=== PATIENT | male | born 1950 | race Caucasian/White ===

== ENCOUNTER 2017-03-05 14:05 | Emergency (ER) | payer MEDICARE, BC ==
[2017-03-05 14:21] VITALS: BP 166/82
--- NOTE | 2017-03-05 14:47 | UC ---
Throat Pain/Nasal Gualberto HPI - HPI Summary HPI Summary: complaint of sore throat and cough that started last night today he feels like his cough has worsened starting to feel like he is wheezing today has used his albuterol 2x day for the last 2 days denies fever and chills - History of Current Complaint Chief Complaint: UCRespiratory Stated Complaint: THROAT PAIN Time Seen by Provider: 03/05/17 14:40 Hx Obtained From: Patient - Allergies/Home Medications Allergies/Adverse Reactions: Allergies Allergy/AdvReac Type Severity Reaction Status Date / Time Penicillins Allergy Severe Hives Verified 03/05/17 14:24 ENVIRONMENTAL/SEASONAL Allergy SNEEZE,CONGESTION,RUNNY Uncoded 03/05/17 14:24 HAYFEVER NOSE Home Medications: Home Medications Ezetimibe TAB* [Zetia TAB*] 10 mg PO DAILY 03/05/17 [History Confirmed 03/05/17] Rosuvastatin Calcium [Crestor] 20 mg PO 03/05/17 [History] PMH/Surg Hx/FS Hx/Imm Hx Previously Healthy: Yes Endocrine History Of: Denies: Diabetes, Thyroid Disease Cardiovascular History Of: Reports: Cardiac Disorders - mi with stent, Hypertension Respiratory History Of: Reports: Asthma - USE INHALER Denies: COPD GI/ History Of: Denies: Ulcer - Surgical History Surgical History: Yes Surgery Procedure, Year, and Place: UMBILICAL AND RIGHT INGUINAL HERNIA SURGERY,. 08/2013 1 CARDIAC STENT INSERTION, [facility] - Family History Known Family History: Negative: Cardiac Disease, Hypertension, Diabetes - Social History Occupation: Retired Lives: With Family Alcohol Use: None Substance Use Type: None Smoking Status (MU): Never Smoked Tobacco Amount Used/How Often: 1/2 PPD Length of Time of Smoking/Using Tobacco: 2 YEARS When Did the Patient Quit Smoking/Using Tobacco: 10-15 YEARS AGO - Immunization History Most Recent Influenza Vaccination: scheduled to recieve it from home MD next week Most Recent Tetanus Shot: scheduled to recieve it from home next week Most Recent Pneumonia Vaccination: scheduled to recieve it from home MD next week Review of Systems Constitutional: Negative Skin: Negative Eyes: Negative ENT: Sore Throat Respiratory: Cough Cardiovascular: Negative Gastrointestinal: Negative Genitourinary: Negative Motor: Negative Neurovascular: Negative Musculoskeletal: Negative Neurological: Headache All Other Systems Reviewed And Are Negative: Yes Physical Exam Triage Information Reviewed: Yes Appearance: No Pain Distress, Well-Nourished Vital Signs: Initial Vital Signs Temp 97.7 F 03/05/17 14:15 Pulse 81 03/05/17 14:15 Resp 18 03/05/17 14:15 BP 166/82 03/05/17 14:15 Pulse Ox 95 03/05/17 14:15 Vital Signs Reviewed: Yes Eyes: Positive: Conjunctiva Clear ENT: Positive: Pharyngeal erythema, Nasal congestion, Nasal drainage, TMs normal , Tonsillar swelling Dental: Positive: Cervical Lymphadenopathy Neck: Positive: No Lymphadenopathy Respiratory: Positive: Normal breath sounds, No respiratory distress, Wheezing - in the bases Cardiovascular: Positive: RRR, Pulses Normal Abdomen Description: Positive: Nontender, Soft Bowel Sounds: Positive: Present Musculoskeletal: Positive: No Edema Neurological Exam: Normal Psychological Exam: Normal Skin Exam: Normal Throat Pain/Nasal Course/Dx - Course Course Of Treatment: exam completed. will treat for asthma exacerabation d/t possible strep infection and worsening of wheezing - Differential Dx/Diagnosis Differential Diagnosis/HQI/PQRI: Pharyngitis, URI, Other - asthma exacerbation Provider Diagnoses: asthma exacerbation, elevated blood pressure Discharge - Discharge Plan Condition: Stable Disposition: HOME Prescriptions: Azithromyxin CAROLINE (NF) [Z-Caroline (Zithromax) 250 mg tabs #6] 2 tab PO .TODAY, THEN 1 DAILY #6 tab predniSONE TAB* [Deltasone TAB*] 50 mg PO DAILY #5 tab Patient Education Materials: Asthma (ED) Referrals: Love Gaitan MD [Primary Care Provider] - Additional Instructions: Please take antibiotic and prednisone as directed Use your albuterol inhaler every 4-6 hours when needed for wheezing, shortness of breath or uncontrolled coughing. Increase fluids and rest Take acetaminophen or ibuprofen for fever or pain Please review your discharge instructions. If your symptoms do not improve please call your primary care provider or return to urgent care.Your blood pressure is elevated. Please contact your primary care provider within 1 day -4 weeks for further evaluation
== END 2017-03-05 15:08 | disposition home or self-care (01) ==
LOC: UCEAST 14:05
DX: J45.901 Unspecified asthma with (acute) exacerbation (principal); I25.2 Old myocardial infarction; I10 Essential (primary) hypertension; Z95.5 Presence of coronary angioplasty implant and graft; Z88.0 Allergy status to penicillin; Z87.891 Personal history of nicotine dependence
CPT/HCPCS: 99212; G0463

== ENCOUNTER 2017-10-06 08:39 | Day surgery (SDC) | payer MEDICARE, BC ==
[~2017-10-06 08:39] MED LIST: Acetaminophen TAB* 325 MG PO PRN; Buffered Lidocaine 0.9% SYRIN* 5 ML/SYR SYRINGE INTRADERM ONE
[2017-10-06] MEDS ORDERED: Midazolam* 1 MG/ML 2 ML VIAL (2 MG) ONE (10:42)
[2017-10-06 11:51] VITALS: BP 110/60
[2017-10-06] MEDS ORDERED: Lidocaine 1% MPF* 2 ML VIAL ONE (12:50)
[2017-10-06] MEDS ORDERED: acetaZOLAMIDE TAB* 250 MG ONE (12:50)
[2017-10-06] MEDS ORDERED: Cyclopentolate 1% OPTH.SOL* 2 ML BTL ONE (12:50)
[2017-10-06] MEDS ORDERED: Ketorolac 0.5% OPHTH (NF) 0.5 % 5 ML BTL ONE (12:51)
[2017-10-06] MEDS ORDERED: Phenylephrine 2.5% OPTH.SOL* 2 ML BTL ONE (12:51)
[2017-10-06] MEDS ORDERED: Povidone Iodine 5% OPTH* 30 ML BTL ONE (12:51)
[2017-10-06] MEDS ORDERED: Proparacaine 0.5% OPHTH.SOL* 15 ML BTL ONE (12:51)
[2017-10-06] MEDS ORDERED: Lidocaine 2% EPI 1:200000 MPF* 20 ML VIAL ONE (12:51)
[2017-10-06] MEDS ORDERED: Neomycin/Polymy/Dex OPTH.SUSP* MAXITROL 0.1% 5 ML ONE (12:51)
--- NOTE | 2017-10-06 13:26 | OP ---
DATE OF OPERATION: 10/06/2017 - [facility] DATE OF : 1950. SURGEON: Nolan Sainz M.D. PREOPERATIVE DIAGNOSIS: Cataract left eye. POSTOPERATIVE DIAGNOSIS: Cataract left eye. OPERATIVE PROCEDURE: Extracapsular cataract extraction with intraocular lens implant left eye. DESCRIPTION OF PROCEDURE: The patient was brought to the operating room after being given 1/2% Alcaine with epinephrine drops in the preoperative area. The eye was prepped and draped in the usual sterile fashion. Sterile drape and eyelid speculum were placed. Again, topical 1/2% Alcaine with epinephrine was given. A paracentesis incision was made at the 3 o'clock position with the No.75 blade. Clear cornea incision 2.2 x 2.2-mm was created at the 6 o'clock position starting at the anterior limbus using the 2.2-mm keratome. The anterior chamber was irrigated with 0.4 mL of 1% non-preservative intracameral lidocaine and filled with DisCoVisc. A capsulorrhexis was completed using the cystotome and the Utrata forceps. Hydrodissection was performed with balanced salt solution. The lens nucleus was removed with the Phacoemulsification handpiece without incident. Cortex was removed with the irrigation-aspiration handpiece. The capsular bag was re-inflated using DisCoVisc and an [id number] 20.5 implant was inserted with the shooter. The irrigation-aspiration handpiece was used to remove all residual DisCoVisc. The eye was refilled with balanced salt solution and the wound checked and found to be watertight. Topical Maxitrol drops were given. [id number]/[facility] #: [id number] [facility]
== END 2017-10-06 11:31 | disposition home or self-care (01) ==
LOC: OREAST 08:39
PROVIDERS: ATTEND Specialist
DX: H25.812 Combined forms of age-related cataract, left eye (principal); I25.10 Atherosclerotic heart disease of native coronary artery without angina pectoris; E55.9 Vitamin D deficiency, unspecified; I10 Essential (primary) hypertension; J45.30 Mild persistent asthma, uncomplicated; E78.5 Hyperlipidemia, unspecified; I25.2 Old myocardial infarction; Z95.5 Presence of coronary angioplasty implant and graft
CPT/HCPCS: A9270-GY; J2250; V2632

== ENCOUNTER 2023-01-12 13:45 | Observation (INO) ==
[2023-01-12 14:27] LABS: ABS Eosinophils 0.1 10^3/ul (0-0.6); ABS Lymphocytes 0.4 10^3/ul (1.0-4.8); ABS Monocytes 0.5 10^3/ul (0-0.8); ABS Neutrophils 3.1 10^3/ul (1.5-7.7); Eosinophil % 3.5 %; Hematocrit 37 % (42-52); Hemoglobin 12.4 g/dL (14.0-18.0); Lymphocyte % 9.1 %; Mean Corpuscular HGB Conc 33 g/dL (31-36); Mean Corpuscular Hemoglobin 28 pg (27-31); Mean Corpuscular Volume 83 fL (80-94); Platelet Count 135 10^3/uL (150-450); Red Blood Count 4.49 10^6 /uL (4.18-5.48); Red Cell Distribution Width 16 % (10-15); White Blood Count 4.2 10^3/uL (3.5-10.8)
[2023-01-12 14:34] LABS: INR 1.39 (0.88-1.18)
[2023-01-12] MEDS ORDERED: Azithromycin 500 mg/250 ml NS 500 MG/250 ML BAG IVPB ONE (14:53)
[2023-01-12] MEDS ORDERED: cefTRIAXone 1 gm/50 mL D5W 1 GM/50 ML BAG IV ONE (14:53)
[2023-01-12 15:26] LABS: Albumin 3.8 g/dL (3.2-5.2); Albumin/Globulin Ratio 2.2 (1-3); Calcium 8.9 mg/dL (8.6-10.3); Creatinine, Serum 0.74 mg/dL (0.67-1.17); Globulin 1.7 g/dL (2-4); Potassium 3.9 mmol/L (3.5-5.0); Total Bilirubin 0.8 mg/dL (0.2-1.0); Total Protein 5.5 g/dL (6.4-8.9); eGFR CKD-EPI 96.9 (>60)
[2023-01-12 15:42] LABS: High Sensitivity Troponin 1 Hr 10 pg/mL (<20)
[2023-01-12 17:08] LABS: C Reactive Protein 8.85 mg/L (<8.01)
[2023-01-12] MEDS ORDERED: Furosemide 20 mg/2 ml IV VIAL IV ONE (17:13)
[2023-01-12] MEDS ORDERED: cefTRIAXone 1 gm/50 mL D5W 1 GM/50 ML BAG IV SCH (17:15)
[2023-01-12] MEDS ORDERED: Azithromycin 500 mg/250 ml NS 500 MG/250 ML BAG IVPB SCH (18:00)
[2023-01-12] MEDS ORDERED: Albuterol 2.5mg/3 ml (0.083%) NEB.SOLN INH PRN (18:06)
[2023-01-12] MEDS ORDERED: Albuterol HFA INHALER 8 gm MDI INH PRN (18:06)
[2023-01-12] MEDS ORDERED: Metoprolol Tartrate 5 mg VIAL 5 ml VIAL (1 mg/ml) IV PRN (18:10)
[2023-01-13 07:00] LABS: ABS Eosinophils 0.2 10^3/ul (0-0.6); ABS Lymphocytes 0.4 10^3/ul (1.0-4.8); ABS Monocytes 0.6 10^3/ul (0-0.8); ABS Neutrophils 3.1 10^3/ul (1.5-7.7); Eosinophil % 4.1 %; Hematocrit 38 % (42-52); Hemoglobin 12.6 g/dL (14.0-18.0); Lymphocyte % 8.4 %; Mean Corpuscular HGB Conc 33 g/dL (31-36); Mean Corpuscular Hemoglobin 27 pg (27-31); Mean Corpuscular Volume 82 fL (80-94); Mean Platelet Volume 9.4 fL (7.4-10.4); Platelet Count 146 10^3/uL (150-450); Red Blood Count 4.61 10^6 /uL (4.18-5.48); Red Cell Distribution Width 16 % (10-15); White Blood Count 4.3 10^3/uL (3.5-10.8)
[2023-01-13 07:11] LABS: Creatinine, Serum 0.75 mg/dL (0.67-1.17); Potassium 3.8 mmol/L (3.5-5.0); eGFR CKD-EPI 96.5 (>60)
[2023-01-13 14:17] VITALS: BP 134/82
[2023-01-13] MEDS ORDERED: cefTRIAXone 1 gm/50 mL D5W 1 GM/50 ML BAG IV SCH (17:15)
[2023-01-13] MEDS ORDERED: Azithromycin 500 mg/250 ml NS 500 MG/250 ML BAG IVPB SCH (18:00)
== END 2023-01-13 16:15 | disposition home or self-care (01) ==
LOC: ED 13:45 → EDHOLD 13:45 → MEDTELE 21:47
PROVIDERS: ADMIT Internal Medicine; ATTEND Internal Medicine

== ENCOUNTER 2024-03-29 10:49 | Observation (INO) ==
[~2024-03-29 10:49] MED LIST changes: -Acetaminophen TAB* 325 MG PO PRN; -Buffered Lidocaine 0.9% SYRIN* 5 ML/SYR SYRINGE INTRADERM ONE; +Naloxone 0.4 mg VIAL 0.4 mg/ml 1 ml VIAL IV PRN
[2024-03-29] MEDS ORDERED: Buffered Lidocaine 1% SYRIN 1 ml ONE (11:36)
[2024-03-29] MEDS ORDERED: ceFAZolin 2 GM PREMIX 2 GM/50 ML BAG ONE (11:36)
[2024-03-29 11:37] LABS: Rapid COVID-19 Molecular Undetected (Undetected)
[2024-03-29] MEDS ORDERED: fentaNYL 250 mcg/5 ml 50 MCG/ML 5 ml VIAL (250 MCG) ONE (11:47)
[2024-03-29] MEDS ORDERED: Lidocaine 2% PF 5 ML VIAL ONE (11:47)
[2024-03-29] MEDS ORDERED: Propofol 10 MG/ML 20 ML BTL ONE (11:47)
[2024-03-29] MEDS ORDERED: Midazolam 2 mg/2 ml VIAL 1 mg/ml 2 ml VIAL (2 mg) ONE (11:48)
[2024-03-29] MEDS: Buffered Lidocaine 1% SYRIN 1 ml INTRADERM ONE (12:07)
[2024-03-29] MEDS: Lactated Ringers 1000 ml BAG 1,000 ML IV SCH (12:07)
[2024-03-29] MEDS ORDERED: Lidocaine 1% w EPI 1:100,000 MDV 20 ML VIAL ONE (13:02)
[2024-03-29] MEDS ORDERED: Thrombin 5,000 UNITS(BOVINE) for Ultrasound Guided Pseudoaneursym ONE (13:03)
[2024-03-29] MEDS ORDERED: Gelfoam Sponge SIZE 100 SPONGE ONE (13:03)
[2024-03-29] MEDS ORDERED: ceFAZolin VIAL VIAL ONE (13:03)
[2024-03-29] MEDS ORDERED: Rocuronium 50 mg VIAL 10 mg/ml 5 ml VIAL (50 mg) ONE (13:29)
[2024-03-29] MEDS ORDERED: Levalbuterol 1.25MG/0.5ML NEB.SOL ONE (13:44)
[2024-03-29] MEDS ORDERED: HYDROmorphone 0.5 MG/0.5 ML SYRINGE ONE (13:58)
[2024-03-29] MEDS ORDERED: Dexamethasone IV 4 MG/ML VIAL 1 ml VIAL ONE (14:03)
[2024-03-29] MEDS ORDERED: Ondansetron 4 mg VIAL 2 MG/ML 2 ml VIAL ONE (14:03)
[2024-03-29] MEDS ORDERED: Acetaminophen IV 1 GM/100ML 1,000 MG/100 ML BAG IV ONE (14:19)
[2024-03-29] MEDS ORDERED: Calcium Carb (TUMS) 500 mg CHEW TAB PO PRN (15:23)
[2024-03-29] MEDS ORDERED: Dextran 70/Hypromellose Tears Eye Drops 15 ml BTL (for Artificials Tears) BOTH EYES PRN (15:23)
[2024-03-29] MEDS ORDERED: Benzocaine/Menthol LOZ MT PRN (15:23)
[2024-03-29] MEDS ORDERED: Ondansetron 4 mg VIAL 2 MG/ML 2 ml VIAL IV PRN (15:23)
[2024-03-29] MEDS ORDERED: Senna TAB 8.6 mg TAB PO PRN (15:23)
[2024-03-29] MEDS ORDERED: Phenol 1.4% Throat Spray BTL MT PRN (15:23)
[2024-03-29] MEDS ORDERED: Albuterol HFA INHALER 8 gm MDI INH PRN (15:26)
[2024-03-29] MEDS ORDERED: Albuterol 2.5mg/3 ml (0.083%) NEB.SOLN INH PRN (15:26)
[2024-03-29] MEDS ORDERED: hydrALAZINE 20 mg/ml 1 ML Vial IV ONE (15:46)
[2024-03-29] MEDS: hydrALAZINE 20 mg/ml 1 ML Vial IV IV SLOW PU ONE (15:48)
[2024-03-29] MEDS: fentaNYL 100 mcg/2 ml 50 MCG/ML VIAL IV PRN (16:03)
[2024-03-29] MEDS ORDERED: fentaNYL 100 mcg/2 ml 50 MCG/ML VIAL ONE ×2 (16:03→16:43)
[2024-03-29] MEDS ORDERED: HYDROcodone/ACETAMIN 5/325 mg TAB ONE (16:26)
[2024-03-29] MEDS: HYDROcodone/ACETAMIN 5/325 mg TAB PO PRN ×2 (16:27→21:29)
[2024-03-29] MEDS ORDERED: Morphine 4 MG/ML VIAL (1 ml) ONE (17:11)
[2024-03-29] MEDS: Morphine 2 MG/ML SYRINGE IV PRN (17:13)
[2024-03-29] MEDS: Mometasone/Formoter 200/5 MDI INH SCH (19:29)
[2024-03-29] MEDS: Insulin GLARGINE 100 un/ml 10 ml VIAL SUBCUT SCH (21:30)
[2024-03-29] MEDS: Potassium Chlor 20 meq TAB.ER PO SCH (21:30)
[2024-03-30] MEDS: NF: Coenzyme Q10 CAP (NF) 100 MG PO SCH (08:19)
[2024-03-30 10:48] VITALS: BP 114/63
== END 2024-03-30 14:15 | disposition home or self-care (01) ==
LOC: SSU 10:49 → OR 10:49
PROVIDERS: ADMIT Neurological Surgery; ATTEND Neurological Surgery